=== PATIENT | male | born 1970 | race African-American/Black ===

== ENCOUNTER 2020-06-05 13:16 | Inpatient (IN) | payer OTHER, MEDICAID ==
[~2020-06-05] VITALS: Ht 172.7 cm; Wt 92.1 kg
[~2020-06-05 13:16] MED LIST: FOLI-43 PO; HYDR25TA PO; IBUP-2030 PO; LISI-604 PO
[2020-06-05] MEDS ORDERED: SODIUM CHLORIDE 0.9% 1,000 ML IV ONE (13:35)
[2020-06-05 14:22] LABS: BASOPHILS % 0.7 % (0.0-2.0); EOSINOPHILS % 2.5 % (0.0-5.0); HEMATOCRIT. 43.5 % (42.0-52.0); HEMOGLOBIN. 14.4 g/dL (14.0-18.0); LYMPHOCYTES % 46.4 % (20.0-50.0); MEAN CORPUSCULAR HEMOGLOBIN 32.9 pg (28.0-32.0); MEAN CORPUSCULAR VOLUME 99.4 fL (80.0-94.0); MEAN PLATELET VOLUME 9.4 fl (7.4-10.4); MONOCYTES % 9.4 % (2.0-8.0); PLATELET 212 x1000/uL (130-400); RED BLOOD CELL COUNT 4.38 mill/uL (4.7-6.1); RED CELL DISTRIBUTION WIDTH 12.4 % (11.6-14.6)
[2020-06-05 14:28] LABS: CHLORIDE 106 mEq/L (98-107)
[2020-06-05] MEDS ORDERED: VANCOMYCIN 1 G PREMIX 200 ML IV ONE (14:30)
[2020-06-05] MEDS ORDERED: PIPERACILLIN/TAZ 3.375G PREMIX 50 ML IV ONE (14:30)
[2020-06-05] MEDS ORDERED: SODIUM CHLORIDE 0.9% 1000ML BAG (SEPSIS BOLUS) IV ONE (14:30)
[2020-06-05 14:40] LABS: D-DIMER 1.36 mg/L FEU (<0.50); INR 1.1; PROTHROMBIN TIME 11.1 sec (9.6-11.0)
[2020-06-05] MEDS ORDERED: IOHEXOL-350 100 ML BOTTLE ONE (16:04)
[2020-06-05 17:24] LABS: CLARITY URINE CLEAR (CLEAR); COLOR URINE YELLOW (YELLOW); KETONES URINE NEGATIVE (NEGATIVE); LEUKOCYTE ESTERASE URINE 1+ (NEGATIVE); NITRITE URINE NEGATIVE (NEGATIVE); OCCULT BLOOD URINE NEGATIVE (NEGATIVE); PROTEIN URINE NEGATIVE (NEGATIVE); SPECIFIC GRAVITY URINE 1.041 (1.005-1.030); UROBILINOGEN URINE 0.2 E.U./dL (0.2-1.0)
[2020-06-05] MEDS ORDERED: IPRATROPIUM/ALBUTEROL 0.5-3(2.5)MG/3ML NEB NEB PRN (17:45)
[2020-06-05] MEDS ORDERED: GUAIFENESIN 200MG/10ML SUGAR FREE UDC PO PRN (17:45)
[2020-06-05] MEDS ORDERED: DIPHENHYDRAMINE 50MG/ML VIAL IV PRN (17:45)
[2020-06-05] MEDS ORDERED: ACETAMINOPHEN 325MG TABLET PO PRN (17:45)
[2020-06-05] MEDS ORDERED: MAGNESIUM/ALUMINUM HYDROXIDE/SIMETHICONE 30ML UDC PO PRN (17:45)
[2020-06-05] MEDS ORDERED: DEXTROSE 50% WATER 50ML SYRINGE IV PRN (17:45)
[2020-06-05] MEDS ORDERED: HYDROCODONE/ACETAMINOPHEN 5/325MG TABLET PO PRN (17:45)
[2020-06-05] MEDS ORDERED: LORAZEPAM 0.5MG TABLET PO PRN (17:45)
[2020-06-05] MEDS ORDERED: ONDANSETRON HCL 4MG/2ML INJ IV PRN (17:45)
[2020-06-05] MEDS ORDERED: DOCUSATE SODIUM 100MG CAPSULE PO PRN (17:45)
[2020-06-05] MEDS ORDERED: ACETAMINOPHEN 650MG SUPP PR PRN (17:45)
[2020-06-05] MEDS ORDERED: NA PHOS,M-B/NA PHOS,DI-BA ENEMA 118ML PR PRN (17:45)
[2020-06-05] MEDS: SODIUM CHLORIDE 0.45% 1,000 ML IV SCH (19:30)
[2020-06-05] MEDS: BLOOD SUGAR DIAGNOSTIC STRIP TEST SCH (21:13)
[2020-06-05] MEDS: FAMOTIDINE 20MG TABLET PO SCH (21:22)
[2020-06-05 22:14] VITALS: BP 138/66
[2020-06-06] VITALS (12 sets, daily range): BP systolic 128–168; BP diastolic 86–118
[2020-06-06] MEDS ORDERED: IBUP-2029 PO (00:01)
[2020-06-06] MEDS ORDERED: METF-415 PO (00:02)
[2020-06-06] MEDS ORDERED: SIMV10TA97 PO (00:02)
[2020-06-06] MEDS ORDERED: LISI-649 PO (00:03)
[2020-06-06] MEDS: SODIUM CHLORIDE 0.45% 1,000 ML IV SCH ×3 (03:41→21:46)
[2020-06-06] MEDS: BLOOD SUGAR DIAGNOSTIC STRIP TEST SCH ×4 (06:43→21:43)
[2020-06-06 07:27] LABS: BASOPHILS % 0.6 % (0.0-2.0); EOSINOPHILS % 2.5 % (0.0-5.0); HEMATOCRIT. 38.5 % (42.0-52.0); HEMOGLOBIN. 12.7 g/dL (14.0-18.0); LYMPHOCYTES % 35.2 % (20.0-50.0); MEAN CORPUSCULAR VOLUME 100.1 fL (80.0-94.0); MEAN PLATELET VOLUME 9.2 fl (7.4-10.4); MONOCYTES % 9.8 % (2.0-8.0); NEUTROPHILS % 51.9 % (40.0-76.0); PLATELET 206 x1000/uL (130-400); RED BLOOD CELL COUNT 3.85 mill/uL (4.7-6.1); RED CELL DISTRIBUTION WIDTH 12.1 % (11.6-14.6)
[2020-06-06 07:29] LABS: CHLORIDE 109 mEq/L (98-107)
[2020-06-06 07:37] LABS: LDL CHOLESTEROL 79 mg/dL (5-100)
[2020-06-06 07:38] LABS: CREATINE KINASE 78 IU/L (39-308); HDL CHOLESTEROL 28 mg/dL (40-59)
[2020-06-06 07:39] LABS: CREATINE KINASE MB FRACTION < 1.0 ng/mL (0.5-3.6)
[2020-06-06 07:40] LABS: T4 FREE 0.91 ng/dL (0.76-1.46)
[2020-06-06] MEDS: INSULIN LISPRO 100 UNITS/ML SUBCUT SCH ×4 (09:17→21:41)
[2020-06-06] MEDS: AMLODIPINE 5MG TABLET PO SCH ×2 (13:48→21:42)
[2020-06-06] MEDS ORDERED: REGADENOSON 0.4 MG/5 ML IV SCH (14:45)
[2020-06-06 15:29] LABS: *AMPHETAMINES SCREEN URINE NEGATIVE (NEGATIVE); *BARBITURATES SCREEN URINE NEGATIVE (NEGATIVE); *BENZODIAZEPINES SCREEN URINE NEGATIVE (NEGATIVE); *COCAINE SCREEN URINE NEGATIVE (NEGATIVE)
[2020-06-06 15:30] LABS: CANNABINOID URINE SCREEN PRESUMTIVE POSITIVE (NEGATIVE); METHADONE URINE SCREEN NEGATIVE (NEGATIVE); OPIATES URINE SCREEN NEGATIVE (NEGATIVE); PHENCYCLIDINE URINE SCREEN NEGATIVE (NEGATIVE)
[2020-06-06] MEDS: CLONIDINE 0.1MG TABLET PO PRN (17:23)
[2020-06-06] MEDS: FAMOTIDINE 20MG TABLET PO SCH (21:42)
[2020-06-07 00:50] VITALS: BP 127/91
[2020-06-07 04:00] VITALS: BP 145/105
[2020-06-07 06:32] LABS: BASOPHILS % 0.5 % (0.0-2.0); EOSINOPHILS % 3.6 % (0.0-5.0); HEMOGLOBIN. 13.7 g/dL (14.0-18.0); MEAN CORPUSCULAR HEMOGLOBIN 33.2 pg (28.0-32.0); MEAN CORPUSCULAR VOLUME 99.6 fL (80.0-94.0); MEAN PLATELET VOLUME 8.9 fl (7.4-10.4); MONOCYTES % 7.7 % (2.0-8.0); NEUTROPHILS % 44.2 % (40.0-76.0); PLATELET 224 x1000/uL (130-400); RED BLOOD CELL COUNT 4.12 mill/uL (4.7-6.1); RED CELL DISTRIBUTION WIDTH 12.3 % (11.6-14.6)
[2020-06-07 06:51] LABS: CHLORIDE 107 mEq/L (98-107)
[2020-06-07] MEDS: BLOOD SUGAR DIAGNOSTIC STRIP TEST SCH ×3 (07:02→16:54)
[2020-06-07 07:09] LABS: TOTAL IRON BINDING CAPACITY 315 ug/dL (250-450)
[2020-06-07] MEDS: INSULIN LISPRO 100 UNITS/ML SUBCUT SCH ×3 (07:32→18:43)
[2020-06-07] MEDS ORDERED: REGADENOSON 0.4 MG/5 ML IV ONE (07:40)
[2020-06-07 07:58] LABS: VITAMIN B12 SERUM 564 pg/mL (211-911)
[2020-06-07 08:00] VITALS: BP_SYST 154; BP_SYST 155; BP_SYST 163; BP_DIAS 111; BP_DIAS 115; BP_DIAS 124
[2020-06-07] MEDS: AMLODIPINE 5MG TABLET PO SCH (08:39)
[2020-06-07 12:00] VITALS: BP 155/108
[2020-06-07] MEDS ORDERED: LOSARTAN POTASSIUM 50 MG TABLET PO SCH (12:30)
[2020-06-07] MEDS ORDERED: MAGNESIUM 1 G PREMIX 100 ML IV NR (12:30)
[2020-06-07] MEDS ORDERED: BLOO1KIT74 TP (14:04)
[2020-06-07] MEDS ORDERED: LOSA50TA3 PO (14:04)
[2020-06-07] MEDS ORDERED: AMLO10TA4 MT (14:04)
[2020-06-07] MEDS ORDERED: ASPI-1497 MT (14:12)
[2020-06-07 16:00] VITALS: BP 161/116
[2020-06-07 16:20] VITALS: BP 155/108
[2020-06-07] MEDS: CLONIDINE 0.1MG TABLET PO PRN (16:54)
== END 2020-06-07 18:42 | disposition home or self-care (01) | DRG 74 ==
LOC: ER 13:30 → 6WST 16:15 → SUPCPDRO 17:35 → ENRESERV 20:46
PROVIDERS: ADMIT Internal Medicine; ATTEND Internal Medicine
DX: G90.8 Other disorders of autonomic nervous system (principal); E87.2 Acidosis; E86.0 Dehydration; E11.319 Type 2 diabetes mellitus with unspecified diabetic retinopathy without macular edema; E11.65 Type 2 diabetes mellitus with hyperglycemia; F12.90 Cannabis use, unspecified, uncomplicated; H54.7 Unspecified visual loss; E11.22 Type 2 diabetes mellitus with diabetic chronic kidney disease; I10 Essential (primary) hypertension; Z79.84 Long term (current) use of oral hypoglycemic drugs; Z86.73 Personal history of transient ischemic attack (TIA), and cerebral infarction without residual deficits; Z79.899 Other long term (current) drug therapy
CPT/HCPCS: 36415; 71045; 71275; 78452; 80048; 80053; 80061; 80305; 81003; 82550; 82553; 82607; 82962; 83036; 83540; 83550; 83605; 83735; 83880; 84439; 84443; 84484; 85025; 85044; 85379; 93005; 93017; 93306; 93880; 93970; 96365; 97162; 99291; A9500; J1815; J2543; J2785; J3370; J3475; J7030; Q9967